=== PATIENT | male | born 1985 | race Caucasian/White ===

== ENCOUNTER 2020-01-02 09:42 | Emergency (ER) | payer MEDICAID, SELFPAY ==
[2020-01-02 09:51] VITALS: BP 133/67; PULSE 82; TEMP 36.5; O2SAT 97
--- NOTE | 2020-01-02 10:12 | W.ED.GENAD ---
Discharge Plan Disposition Patient Disposition: HOME Condition: Stable Discharge Details Chief Complaint: Fever Clinical Impression: Fever, intermittent Primary Care Provider: Randal Moreira ED Provider: Luis Deleon Home Meds and New Rx's Prescriptions: Continued buprenorphine-naloxone [Suboxone] 1 EACH film 16 mg PO DAILY RF: 0 Discharge Instructions Instructions: Fever in Adults (ED) Additional Instructions: Please contact your primary care physician to arrange follow-up. Please drink plenty of fluids and stay hydrated. Stay out of the heat and saline irrigation department as much as possible at least a few times a day. Return to the ER for any worsening or new concerning symptoms. If fever were to persist or you develop other symptoms you will need additional diagnostic testing. Stand Alone Forms: PENDING COVID-19 TESTING Referrals: Randal Moreira [Primary Care Provider] - Medical Decision Making 34-year-old male with history of opioid use disorder, now on Suboxone, sent from [facility] for COVID-19 screening given recent fever. Patient is afebrile here. Hemodynamically stable. No signs of focal bacterial infection. Patient does have remote history of IV drug use. He has no murmur and no concerning rash -no Janeway lesions or Osler nodes. Patient is very well-appearing with no concern for sepsis. Plan to screen for COVID-19 although he has had no known contacts or recent travel. Plan will be for patient to follow-up with his primary care physician. He understands that if he has recurrent fever he will need additional diagnostic testing. HPI General Mode of arrival: ambulatory. Date/Time Provider Initiated Documentation: 01/02/20 10:12. Limitations to Documentation: no limitations. Information obtained by: patient. HPI Narrative: 34-year-old male with history of opioid use disorder, now on Suboxone, sent from [facility] with concern for fever. Patient notes he has been screened for fever at the [facility] daily via forehead thermometer. He had a fever of 100.12 days ago. He was afebrile yesterday. Today again he had a fever of 101. No modifiers. Patient denies subjective fever or chills. Feels well. No cough. No rash. No recent travel and no sick contacts. Related Data Home Medications Medication Instructions Recorded Confirmed buprenorphine-naloxone [Suboxone] 16 mg PO DAILY 01/22/17 01/02/20 Allergies Allergy/AdvReac Type Severity Reaction Status Date / Time No Known Allergies Allergy Unverified 01/02/20 09:57 General Stated Complaint: Fever JOSHUA: 5 Review of Systems All systems reviewed & are unremarkable except as noted in HPI and below Constitutional Constitutional: Denies headache(s) ENT Ears, Nose, Mouth, and Throat: Denies headache(s), Denies nasal congestion and Denies sore throat Respiratory Respiratory: Denies cough Gastrointestinal Gastrointestinal: Denies abdominal pain, Denies nausea and Denies vomiting Genitourinary Genitourinary: Denies difficulty urinating and Denies dysuria Musculoskeletal Musculoskeletal: Denies myalgias and Denies arthralgias Integumentary/Breasts Skin/Breast: Denies rash Neurologic Neurologic: Denies headache(s) [facility] Social History Smoking/Tobacco Use Status: Current every day Tobacco Type: cigarettes Alcohol Intake: former Drug use: Current Sobriety Do you feel safe at home: Yes Do you feel safe in your relationship?: Yes Exam Const General: cooperative and no acute distress HENMT Mouth: moist mucous membranes Throat: posterior oropharynx normal Eyes Conjunctivae: normal conjunctivae Sclera: normal sclerae Neck Neck: trachea midline and supple Resp Auscultation: clear to auscultation bilaterally, no rales, no rhonchi and no wheezes Cardio Jugular venous pressure: no JVD Rate: regular rate and not tachycardic Rhythm: regular rhythm GI Palpation: soft, not firm, no guarding, no masses, not rigid and nontender Skin General skin exam: no rashes or lesions noted Neuro General: patient alert, patient awake, patient oriented x3 and tone normal Extrem General: no edema Psych Appearance: grossly normal Mental Status: mental status grossly normal Speech and Movement: speech and movement normal Course Vital Signs Vital signs: Vital Signs Temperature 36.5 C 01/02/20 09:51 Pulse 82 01/02/20 09:51 Blood Pressure 133/67 01/02/20 09:51 Pulse Oximetry 97 01/02/20 09:51 Temperature 36.5 C 01/02/20 09:51 Temperature Source Temporal Artery Scan 01/02/20 09:51 Pulse 82 01/02/20 09:51 Respiratory Effort Non-Labored 01/02/20 09:55 Blood Pressure 133/67 01/02/20 09:51 Blood Pressure Position Sitting 01/02/20 09:51 Pulse Oximetry 97 01/02/20 09:51 Oxygen Delivery Method Room Air 01/02/20 09:51 Oxygen Flow Rate 0 01/02/20 09:51 Pain Level 0 01/02/20 09:51
[2020-01-02 10:23] VITALS: TEMP 37
[2020-01-03 13:36] LABS: COVID-19 RT-PCR UVMMC Result Negative (Negative)
== END 2020-01-02 10:17 | disposition home or self-care (01) ==
PROVIDERS: Emergency Provider Student in an Organized Health Care Education/Training Program; PCP Family Medicine
DX: R50.9 Fever, unspecified (principal); F11.10 Opioid abuse, uncomplicated; Z11.59 Encounter for screening for other viral diseases
CPT/HCPCS: 99282; U0003